=== PATIENT | male | born 1970 | race Two or more races ===

== ENCOUNTER 2017-10-07 09:31 | Emergency (ER) | payer OTHER ==
[~2017-10-07] VITALS: Ht 170.2 cm; Wt 79.4 kg
--- NOTE | 2017-10-07 09:38 | ER Report ---
History and Physical Time Seen By MD: 10:10 HPI/ROS CHIEF COMPLAINT: Abdominal pain, fever, congestion HISTORY OF PRESENT ILLNESS: Patient is a 47-year-old male with no contributory past medical history who has had sinus pressure and headache for the past 2 weeks today started developing some abdominal cramping but mostly reports severe nausea and occasional vomiting. He denies diarrhea. No recent history of travel or antibiotic use. Patient instructed [id number] pain relief however this is no longer helping. For this reason he presents to the emergency department for evaluation. REVIEW OF SYSTEMS: Constitutional: Subjective fevers no chills Eyes: No discharge. ENT: Bilateral maxillary sinus pressure, pressure behind the eyes Cardiovascular: No chest pain, no palpitations. Respiratory: No cough, no shortness of breath. Gastrointestinal: abdominal pain, nausea, vomiting Genitourinary: No hematuria. Musculoskeletal: No back pain. Skin: No rashes. Neurological: headache. Allergies: Coded Allergies: No Known Drug Allergies (Unverified , 10/07/17) Home Meds Active Scripts Pseudoephedrine Hcl (SUDAFED 12 HOUR) 120 Mg Tablet.er, 120 MG PO Q12H, #20 TAB 0 Refills Prov:CHICO VALDES MD 10/07/17 Oxymetazoline Hcl (AFRIN) 15 Ml Mist, 2 SPRAYS NISA BID for 3 Days, #1 BOTTLE 0 Refills discontinue use after 72 hours Prov:CHICO VALDES MD 10/07/17 Amoxicillin/Pot Clav 875-125 Mg Tab (AUGMENTIN 875-125 TABLET) 1 Each Tablet, 1 TAB PO Q12H for 10 Days, #20 TAB 0 Refills Prov:CHICO VALDES MD 10/07/17 Reported Medications Ibuprofen/Pseudoephedrine Hcl (ADVIL COLD & SINUS CAPLET) 1 Each Tablet, 1 EACH PO Q4-6H 10/07/17 Past Medical/Surgical History Noncontributory Constitutional Vital Sign - Last 24 Hours 10/07/17 10/07/17 10/07/17 10/07/17 09:37 09:37 10:00 10:01 Temp 98.2 Pulse 89 84 Resp 20 B/P (MAP) 119/91 (100) 119/91 97/60 (72) Pulse Ox 96 91 O2 Delivery Room Air 10/07/17 10/07/17 10/07/1722/18 10:09 10:30 10:31 11:00 Pulse 81 Resp 17 B/P (MAP) 96/65 (75) 100/59 (73) Pulse Ox 96 O2 Flow Rate 2.0 10/07/17 10/07/17 10/07/17 10/07/17 11:01 11:30 11:35 12:00 Pulse 83 78 Resp 8 15 B/P (MAP) 82/48 (59) 98/67 (77) Pulse Ox 96 98 10/07/17 10/07/17 10/07/17 10/07/17 12:05 12:35 13:00 13:10 Pulse ? 85 B/P (MAP) 95/58 (70) Pulse Ox 93 10/07/17 10/07/17 10/07/17 10/07/17 13:30 13:40 14:00 14:10 Pulse 83 81 B/P (MAP) 99/67 (78) 104/73 (83) Pulse Ox 93 97 Physical Exam General Appearance: The patient is alert, has no immediate need for airway protection and no signs of toxicity. Eyes: Pupils equal and round no pallor or injection. ENT, Mouth: Mucous membranes are moist. No tenderness to percussion of maxillary sinuses Respiratory: There are no retractions, lungs are clear to auscultation. Cardiovascular: Regular rate and rhythm. Gastrointestinal: Abdomen is soft and non tender, no masses, bowel sounds normal. Neurological: Awake alert Skin: Warm and dry, no rashes. Musculoskeletal: Neck is supple non tender. Extremities are nontender, nonswollen and have full range of motion. Medical Decision Making Data Points Result Diagram: 10/07/17 0947 10/07/17 0947 Laboratory Hematology Test 10/07/17 09:47 Red Blood Count 5.23 M/uL (4.00-5.60) Mean Corpuscular Volume 92.5 fL (80.0-96.0) Mean Corpuscular Hemoglobin 31.4 pg (26.0-33.0) Mean Corpuscular Hemoglobin Concent 33.9 g/dL (32.0-36.0) Red Cell Distribution Width 12.3 % (11.5-14.5) Mean Platelet Volume 9.3 fL (7.2-11.1) Neutrophils (%) (Auto) 77.5 % (39.4-72.5) Lymphocytes (%) (Auto) 14.6 % (17.6-49.6) Monocytes (%) (Auto) 7.1 % (4.1-12.4) Eosinophils (%) (Auto) 0.5 % (0.4-6.7) Basophils (%) (Auto) 0.3 % (0.3-1.4) Nucleated RBC Relative Count (auto) 0.0 /100WBC Neutrophils # (Auto) 11.0 K/uL (2.0-7.4) Lymphocytes # (Auto) 2.1 K/uL (1.3-3.6) Monocytes # (Auto) 1.0 K/uL (0.3-1.0) Eosinophils # (Auto) 0.1 K/uL (0.0-0.5) Basophils # (Auto) 0.0 K/uL (0.0-0.1) Nucleated RBC Absolute Count (auto) 0.01 K/uL Sodium Level 144 mmol/L (137-145) Potassium Level 4.2 mmol/L (3.5-5.0) Chloride Level 106 mmol/L (98-107) Carbon Dioxide Level 23 mmol/L (22-30) Blood Urea Nitrogen 15 mg/dl (9-21) Creatinine 0.90 mg/dl (0.66-1.25) Glomerular Filtration Rate Calc > 60.0 Random Glucose 109 mg/dl (75-110) Calcium Level 9.2 mg/dl (8.4-10.2) Total Bilirubin 0.6 mg/dl (0.2-1.3) Aspartate Amino Transf (AST/SGOT) 20 U/L (0-35) Alanine Aminotransferase (ALT/SGPT) 33 U/L (0-56) Alkaline Phosphatase 95 U/L (0-126) Total Protein 7.6 gm/dl (6.3-8.2) Albumin 4.1 g/dl (3.5-5.0) Chemistry Test 10/07/17 09:47 White Blood Count 14.2 k/uL (4.5-11.0) Red Blood Count 5.23 M/uL (4.00-5.60) Hemoglobin 16.4 g/dL (14.0-18.0) Hematocrit 48.4 % (42.0-52.0) Mean Corpuscular Volume 92.5 fL (80.0-96.0) Mean Corpuscular Hemoglobin 31.4 pg (26.0-33.0) Mean Corpuscular Hemoglobin Concent 33.9 g/dL (32.0-36.0) Red Cell Distribution Width 12.3 % (11.5-14.5) Platelet Count 224 K/uL (150-450) Mean Platelet Volume 9.3 fL (7.2-11.1) Neutrophils (%) (Auto) 77.5 % (39.4-72.5) Lymphocytes (%) (Auto) 14.6 % (17.6-49.6) Monocytes (%) (Auto) 7.1 % (4.1-12.4) Eosinophils (%) (Auto) 0.5 % (0.4-6.7) Basophils (%) (Auto) 0.3 % (0.3-1.4) Nucleated RBC Relative Count (auto) 0.0 /100WBC Neutrophils # (Auto) 11.0 K/uL (2.0-7.4) Lymphocytes # (Auto) 2.1 K/uL (1.3-3.6) Monocytes # (Auto) 1.0 K/uL (0.3-1.0) Eosinophils # (Auto) 0.1 K/uL (0.0-0.5) Basophils # (Auto) 0.0 K/uL (0.0-0.1) Nucleated RBC Absolute Count (auto) 0.01 K/uL Glomerular Filtration Rate Calc > 60.0 Calcium Level 9.2 mg/dl (8.4-10.2) Total Bilirubin 0.6 mg/dl (0.2-1.3) Aspartate Amino Transf (AST/SGOT) 20 U/L (0-35) Alanine Aminotransferase (ALT/SGPT) 33 U/L (0-56) Alkaline Phosphatase 95 U/L (0-126) Total Protein 7.6 gm/dl (6.3-8.2) Albumin 4.1 g/dl (3.5-5.0) EKG/Imaging Imaging FACILITY: [facility] PATIENT NAME: Gio Ling : 1970 MR: [id number] V: [id number] EXAM DATE: [id number] ORDERING PHYSICIAN: CHICO VALDES TECHNOLOGIST: Location[place] [facility] [place] Patient: Gio Ling : 1970 Visit/Account:[id number] Date of Sev: 10/07/2017 EXAMINATION: CT HEAD WITHOUT CONTRAST COMPARISON: None available HISTORY: dizziness PROCEDURE: Noncontrast CT from the vertex through the skull base. One of the following dose optimization techniques was utilized in the performance of this exam: Automated exposure control; adjustment of the mA and/or kV according to the patient's size; or use of an iterative reconstruction technique. Specific details can be referenced in the facility's radiology CT exam operational policy. FINDINGS: Brain volume: Age-appropriate. Hemorrhage/extra-axial fluid: None. Mass effect/midline shift/edema: None. Ischemia: Newby-white differentiation is preserved. Ventricles and basal cisterns: Within normal limits. Posterior fossa: Negative. Vessels: Negative. Calvarium, skull base, and scalp: Negative. Visualized sinuses and orbits: Visualized paranasal sinuses are partially opacified by frothy fluid. Mastoid air cells are well aerated. Orbital contents are unremarkable. IMPRESSION: 1. No intracranial hemorrhage or mass effect. 2. No CT findings of acute ischemia. 3. Sinusitis. Report Dictated By: James Henriquez MD at 10/07/2017 12:41 PM Report E-Signed By: James Henriquez MD at 10/07/2017 12:46 PM WSN:[id number] FACILITY: [facility] PATIENT NAME: Gio Ling : 1970 MR: [id number] V: [id number] EXAM DATE: [id number] ORDERING PHYSICIAN: CHICO VALDES TECHNOLOGIST: Location: [facility] [place] Patient: Gio Ling : 1970 Visit/Account:[id number] Date of Sevice: 10/07/2017 EXAMINATION: CT abdomen and pelvis with contrast COMPARISON: None. HISTORY: vomiting PROCEDURE: Multiplanar contrast enhanced CT of the abdomen and pelvis with 75 mL intravenous Isovue 370. One of the following dose optimization techniques was utilized in the performance of this exam: Automated exposure control; adjustment of the mA and/or kV according to the patient's size; or use of an iterative reconstruction technique. Specific details can be referenced in the facility's radiology CT exam operational policy. FINDINGS: Visualized thorax: No evidence of acute disease within the visualized lower thorax. Liver: Negative. Gallbladder and biliary system: Negative Spleen: Spleen size is normal. Pancreas: Negative. Adrenal glands: Negative. Kidneys and bladder: No renal mass or evidence of an obstructive uropathy. Urinary bladder is unremarkable. Vessels: Within normal limits. Bowel and mesentery: Tiny hiatal hernia. No gastric distention. No small bowel obstruction. Appendix is within normal limits. Minimal stool in the colon. No bowel or mesenteric inflammation. Pelvic organs: Negative. Lymph nodes: No adenopathy. Free air/free fluid: None. Abdominal wall and osseous structures: Small fat-containing umbilical hernia. Small fat-containing right inguinal hernia. L4-S1 posterior fusion and decompression. No acute osseous abnormality. IMPRESSION: 1. No findings of acute disease in the abdomen or pelvis. 2. Chronic findings as described above. Report Dictated By: James Henriquez MD at 10/07/2017 12:46 PM Report E-Signed By: James Henriquez MD at 10/07/2017 12:50 PM WSN:[id number] ED Course/Re-evaluation Clinical Indication for ER IV: IV Access ED Course 10/07/2017 2:04:32 pm workup reveals acute sinusitis which I suspect is the cause of the patient's symptoms of facial pressure headache dizziness. Plan at this time will be treatment with antibiotics and decongestants. Decision to Disposition Date: Oct 07, 2017 Decision to Disposition Time: 14:04 Depart Departure Latest Vital Signs Vital Signs Date Time Temp Pulse Resp B/P (MAP) Pulse Ox O2 Delivery O2 Flow Rate FiO2 10/07/17 14:10 81 97 10/07/17 14:00 104/73 (83) 10/07/17 11:35 15 10/07/17 10:09 2.0 10/07/17 09:37 98.2 Room Air Impression: Primary Impression: Sinusitis Condition: Improved Disposition: HOME OR SELF-CARE New Scripts Pseudoephedrine Hcl (SUDAFED 12 HOUR) 120 Mg Tablet.er 120 MG PO Q12H, #20 TAB 0 Refills Prov: CHICO VALDES MD 10/07/17 Oxymetazoline Hcl (AFRIN) 15 Ml Mist 2 SPRAYS NISA BID for 3 Days, #1 BOTTLE 0 Refills discontinue use after 72 hours Prov: CHICO VALDES MD 10/07/17 Amoxicillin/Pot Clav 875-125 Mg Tab (AUGMENTIN 875-125 TABLET) 1 Each Tablet 1 TAB PO Q12H for 10 Days, #20 TAB 0 Refills Prov: CHICO VALDES MD 10/07/17 Departure Forms: ER Transition Record, Medications Reconciliation, Off Work/ School Form, School or Work Release?: Work Number of days to be released: 3 Patient Portal Information Patient Instructions: Sinusitis (GEN) Problem Qualifiers Primary Impression: Sinusitis Sinusitis location: unspecified location Chronicity: acute Recurrence: not specified as recurrent Qualified Codes: J01.90 - Acute sinusitis, unspecified CHICO VALDES MD Oct 07, 2017 09:38
[2017-10-07] MEDS ORDERED: IBUP1TAB93 PO (09:42)
[2017-10-07] MEDS ORDERED: NS(*) 0.9% 1000 ML BAG 1,000 ML IV ONE ×2 (09:48→11:45)
[2017-10-07] MEDS ORDERED: OXYMETAZOLINE SPRAY 15 ML BTL ENA SCH (09:50)
[2017-10-07] MEDS ORDERED: ONDANSETRON 4 MG/2 ML VIAL IVP ONE ×2 (09:50→10:55)
[2017-10-07] MEDS ORDERED: KETOROLAC 15 MG/ML VIAL IVP ONE (09:50)
[2017-10-07 11:45] LABS: PLATELET COUNT, AUTOMATED 224 K/uL (150-450)
[2017-10-07] MEDS ORDERED: IOPAMIDOL 76% 75 ML INFUS BTL 75 ML ONE (12:07)
--- NOTE | 2017-10-07 12:51 | RADIOLOGY IMAGING REPORT ---
FACILITY: [facility] PATIENT NAME: Gio Ling : 1970 MR: [id number] V: [id number] EXAM DATE: ORDERING PHYSICIAN: CHICO VALDES TECHNOLOGIST: Location: [facility] - [place] Patient: Gio Ling : 1970 Visit/Account:[id number] Date of Sevice: 10/07/2017 EXAMINATION: CT HEAD WITHOUT CONTRAST COMPARISON: None available HISTORY: dizziness PROCEDURE: Noncontrast CT from the vertex through the skull base. One of the following dose optimizat ion techniques was utilized in the performance of this exam: Automated exposure control; adjustment o f the mA and/or kV according to the patient's size; or use of an iterative reconstruction technique. Specific details can be referenced in the facility's radiology CT exam operational policy. FINDINGS: Brain volume: Age-appropriate. Hemorrhage/extra-axial fluid: None. Mass effect/midline shift/edema: None. Ischemia: Newby-white differentiation is preserved. Ventricles and basal cisterns: Within normal limits. Posterior fossa: Negative. Vessels: Negative. Calvarium, skull base, and scalp: Negative. Visualized sinuses and orbits: Visualized paranasal sinuses are partially opacified by frothy fluid. Mastoid air cells are well aerated. Orbital contents are unremarkable. IMPRESSION: 1. No intracranial hemorrhage or mass effect. 2. No CT findings of acute ischemia. 3. Sinusitis. Report Dictated By: James Henriquez MD at 10/07/2017 12:41 PM Report E-Signed By: James Henriquez MD at 10/07/2017 12:46 PM WSN:[id number]
--- NOTE | 2017-10-07 12:55 | RADIOLOGY IMAGING REPORT ---
FACILITY: [facility] - [place] PATIENT NAME: Gio Ling : 1970 MR: [id number] V: [id number] EXAM DATE: ORDERING PHYSICIAN: CHICO VALDES TECHNOLOGIST: Location: [facility] Patient: Gio Ling : 1970 Visit/Account:[id number] Date of Sevice: 10/07/2017 EXAMINATION: CT abdomen and pelvis with contrast COMPARISON: None. HISTORY: vomiting PROCEDURE: Multiplanar contrast enhanced CT of the abdomen and pelvis with 75 mL intravenous Isovue 3 70. One of the following dose optimization techniques was utilized in the performance of this exam: A utomated exposure control; adjustment of the mA and/or kV according to the patient's size; or use of an iterative reconstruction technique. Specific details can be referenced in the facility's radiolo gy CT exam operational policy. FINDINGS: Visualized thorax: No evidence of acute disease within the visualized lower thorax. Liver: Negative. Gallbladder and biliary system: Negative Spleen: Spleen size is normal. Pancreas: Negative. Adrenal glands: Negative. Kidneys and bladder: No renal mass or evidence of an obstructive uropathy. Urinary bladder is unrema rkable. Vessels: Within normal limits. Bowel and mesentery: Tiny hiatal hernia. No gastric distention. No small bowel obstruction. Appendix is within normal limits. Minimal stool in the colon. No bowel or mesenteric inflammation. Pelvic organs: Negative. Lymph nodes: No adenopathy. Free air/free fluid: None. Abdominal wall and osseous structures: Small fat-containing umbilical hernia. Small fat-containing ri ght inguinal hernia. L4-S1 posterior fusion and decompression. No acute osseous abnormality. IMPRESSION: 1. No findings of acute disease in the abdomen or pelvis. 2. Chronic findings as described above. Report Dictated By: James Henriquez MD at 10/07/2017 12:46 PM Report E-Signed By: James Henriquez MD at 10/07/2017 12:50 PM WSN:[id number]
[2017-10-07] MEDS ORDERED: cefTRIAXone 1 GM VIAL IVP ONE (13:05)
[2017-10-07] MEDS ORDERED: PSEUDOEPHEDRINE LA 120MG TABCR PO ONE (13:05)
[2017-10-07 14:00] VITALS: BP 104/73
[2017-10-07] MEDS ORDERED: OXYM15MI14 ENA (14:07)
[2017-10-07] MEDS ORDERED: AMOX-559 PO (14:07)
[2017-10-07] MEDS ORDERED: PSEU-287 PO (14:07)
== END 2017-10-07 14:15 | disposition home or self-care (01) ==
LOC: ER 10:15
DX: J01.90 Acute sinusitis, unspecified (principal)
CPT/HCPCS: 70450; 74177; 85025; 96361; 96374; 96375; 96376; 99284; J0696; J1885; J2405; J7030; Q9967; 82040; 82247; 82310; 82374; 82435; 82565; 82947; 84075; 84132; 84155; 84295; 84450; 84460; 84520